=== PATIENT | female | born 1980 | race Caucasian/White ===

== ENCOUNTER 2017-06-25 23:12 | Emergency (ER) | payer MEDICAID ==
[~2017-06-25] VITALS: Ht 152.4 cm; Wt 63.6 kg
[2017-06-25 23:15] VITALS: Ht 152.4 cm; Wt 63.6 kg
[2017-06-25] MEDS ORDERED: LORAZEPAM 2 MG INJ IM ONE (23:30)
[2017-06-25] MEDS ORDERED: ALPR0.5T PO (23:51)
[2017-06-26 00:44] VITALS: BP 128/76; PULSE 94; RESP 18; TEMP 98.6
--- NOTE | 2017-06-26 03:29 | ERD ---
ER Documentation Chief Complaint Date/Time DATE: 06/26/17 TIME: 03:26 Chief Complaint RA39,psych eval,refused to answer questions,unable to assess for SI/HI HPI 36-year-old woman brought in by EMS from home for anxiety and laying in bed not responding to family members. Family members called 911 because they were worried about her and stated that this is never happened to her before. Patient later stated she was having issues with her employer. 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 Patient does have a history of anxiety but denies suicidal homicidal ideation. She has had no fevers or chills, no seizure activity, no loss of consciousness, no chest pain or shortness of breath. Patient was transported here by EMS without any complications. ROS All systems reviewed and are negative except as per history of present illness. Medications Home Meds Active Scripts Alprazolam* (Xanax*) 0.5 Mg Tab, 0.5 MG PO TID for ANXIETY, #12 TAB Prov:SHAHNAZ ALVARENGA MD 06/25/17 Allergies Allergies: Coded Allergies: No Known Allergy (Unverified , 06/25/17) PMhx/Soc Anxiety/depression Medical and Surgical Hx: pt denies Medical Hx, pt denies Surgical Hx Hx Alcohol Use: Yes Hx Substance Use: Yes (MARIJUANA) Hx Tobacco Use: Yes Smoking Status: Current every day smoker FmHx Family History: No diabetes Physical Exam Vitals Vital Signs Date Time Temp Pulse Resp B/P Pulse Ox O2 Delivery O2 Flow Rate FiO2 06/26/17 00:44 98.6 94 18 128/76 99 Room Air 06/25/17 23:15 98.6 116 18 134/82 97 Physical Exam GENERAL: Well-developed, well-nourished, well-hydrated, appears anxious full HEENT: Moist mucous membranes, pink conjunctiva, no cervical spine tenderness or step-off deformities, no goiter, no jaundice or icterus, extraocular movements intact without pain. No submandibular induration, and no pharyngeal erythema NEURO: Alert and oriented 3, cranial nerves II through XII intact bilaterally, pupils equal round reactive to light, no focal deficits or facial asymmetry, sensation intact distally Strength 5/5 in upper and lower extremities bilaterally CARDIAC: Regular rate and rhythm, no murmurs rubs or gallops LUNGS: Clear bilaterally no wheezing crackles or stridor ABDOMEN: Soft nontender, no guarding, no rigidity, no rebound, no psoas sign no obturator sign. Normoactive bowel sounds SKIN: Warm and dry to touch, no abrasions, contusions, or hematomas, no lacerations, no ecchymosis, no target lesions, and without ulcers EXTREMITIES: No clubbing cyanosis or edema, calves are bilaterally symmetrical, no Homans sign, no popliteal cord sign. Distal pulses equal and bilateral PSYCH: Anxious Results 24 hrs Current Medications Medications (Trade) Dose Ordered Sig/Shane Route PRN Reason Start Time Stop Time Status Last Admin Dose Admin Lorazepam (Ativan) 1 mg ONCE ONCE IM 06/25/17 23:30 06/25/17 23:31 DC 06/25/17 23:35 Procedures/MDM I administered lorazepam 1 mg IM. Patient responded positively after medication was given and spoke about her problems. She has no focal deficits or facial asymmetry, neurologic exam remained completely normal. She called a family member and was picked up and taken home. Prior to discharge I did give her both verbal and written discharge instructions and recommendations to follow -up with her PMD and a psychiatrist. Differential diagnoses considered, included but not limited to acute coronary syndrome, pulmonary embolism, aortic dissection, abdominal aortic aneurysm, sepsis, stroke, meningitis, encephalitis, pneumonia, appendicitis, cholecystitis , bowel obstruction, pyelonephritis, nephrolithiasis, cystitis, as well as metabolic, hematologic, and electrolyte abnormalities. As well as abscess, cellulitis, fractures, and dislocations. Patient feels much better at this time, and vital signs are normal, symptoms have improved. I did give strict instructions to return to the ED if symptoms continue or worsen, patient will otherwise follow-up with primary care physician. Patient understood instructions and agreed to plan. Disclaimer: Inadvertent spelling and grammatical errors are likely due to EHR/ dictation software use and do not reflect on the overall quality of patient care. Also, please note that the electronic time recorded on this note does not necessarily reflect the actual time of the patient encounter. Departure Diagnosis: Primary Impression: Anxiety Condition: Good Patient Instructions: Anxiety Reaction SHAHNAZ ALVARENGA MD Jun 26, 2017 03:29
== END 2017-06-25 23:53 | disposition home or self-care (01) ==
LOC: E/R 23:12
DX: F41.9 Anxiety disorder, unspecified (principal); F17.210 Nicotine dependence, cigarettes, uncomplicated
CPT/HCPCS: 96372; J2060; Z7502